=== PATIENT | male | born 1945 | race Caucasian/White ===

== ENCOUNTER 2018-01-21 19:58 | Emergency (ER) | payer OTHER ==
[~2018-01-21] VITALS: Ht 180.3 cm; Wt 72.6 kg
--- NOTE | ~2018-01-21 | EKG ---
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
[2018-01-21] MEDS ORDERED: UNKNOWN BP MED (20:26)
[2018-01-21] MEDS ORDERED: [UNRECOGNIZED DRUG - REMARK] (20:26)
[2018-01-21 20:59] LABS: ABSOLUTE NEUTROPHILS 5.9 thou/uL (1.4-8.2); BASOPHILS 0.7 % (0.0-2.0); EOSINOPHILS 1.3 % (0.0-3.0); LYMPHOCYTES 26.1 % (24.0-44.0); MCH 31.1 pg (26.0-34.0); MCHC 33.3 g/dL (28.0-37.0); MCV 93.4 fL (80.0-100.0); MONOCYTES 9.2 % (1.0-8.0); PLATELET COUNT 160 thou/uL (150-400); POLYS 62.7 % (36.0-66.0); RBC 5.13 mil/uL (4.50-6.00); RDW 17.7 % (10.5-14.5); WBC 9.4 thou/uL (4.0-11.0)
[2018-01-21 21:05] LABS: ANION GAP 8 mmol/L (7-16); BUN 24 mg/dL (7-18); CALCIUM 9.2 mg/dL (8.5-10.1); CHLORIDE 107 mmol/L (98-107); CO2 29 mmol/L (21-32); CREATININE 1.8 mg/dL (0.7-1.3); GLUCOSE 129 mg/dL (74-106); POTASSIUM 4.1 mmol/L (3.5-5.1); SODIUM 144 mmol/L (136-145)
[2018-01-21 21:07] LABS: URINE BILIRUBIN NEGATIVE (Negative); URINE BLOOD NEGATIVE (Negative); URINE CLARITY CLEAR; URINE COLOR YELLOW; URINE GLUCOSE-RANDOM* NEGATIVE (Negative); URINE KETONES NEGATIVE (Negative); URINE LEUKOCYTES-REFLEX NEGATIVE (Negative); URINE NITRITE-REFLEX NEGATIVE (Negative); URINE PROTEIN (DIPSTICK) NEGATIVE (Negative); URINE SPECIFIC GRAVITY 1.025 (1.005-1.035); URINE UROBILINOGEN 0.2 E.U./dl (0.2-1.0)
[2018-01-21 21:13] LABS: ALBUMIN 3.7 g/dL (3.4-5.0); DIRECT BILIRUBIN 0.1 mg/dL (<0.1-0.3); LIPASE 171 U/L (73-393); SGOT 21 U/L (15-37); SGPT 20 U/L (30-65); TOTAL BILIRUBIN 0.4 mg/dL (<0.1-1.0); TOTAL PROTEIN 7.7 g/dL (6.4-8.2); TROPONIN-I <0.06 ng/mL (<0.06)
[2018-01-21 22:47] VITALS: BP 186/95
== END 2018-01-21 22:48 | disposition home or self-care (01) ==
LOC: ER 19:58
PROVIDERS: Emergency Medicine
DX: R07.89 Other chest pain (principal); I10 Essential (primary) hypertension; F03.90 Unspecified dementia, unspecified severity, without behavioral disturbance, psychotic disturbance, mood disturbance, and anxiety; F17.210 Nicotine dependence, cigarettes, uncomplicated; Z95.1 Presence of aortocoronary bypass graft

== ENCOUNTER 2018-06-24 18:50 | Inpatient (IN) | payer OTHER ==
[~2018-06-24] VITALS: Ht 180.3 cm; Wt 75.5 kg
[~2018-06-24 18:50] MED LIST: UNKNOWN BP MED; [UNRECOGNIZED DRUG - REMARK]
[2018-06-24 18:53] VITALS: BP 130/90
[2018-06-24] MEDS ORDERED: ASPIR 8181 M1 PO (19:05)
[2018-06-24] MEDS ORDERED: TOPROL XL100 MG (19:05)
[2018-06-24 19:27] LABS: BASOPHILS 0.7 % (0.0-2.0); EOSINOPHILS 1.1 % (0.0-3.0); HEMATOCRIT 48.7 % (42.0-52.0); HEMOGLOBIN 16.4 gm/dL (14.0-18.0); LYMPHOCYTES 19.7 % (24.0-44.0); MCH 31.3 pg (26.0-34.0); MCHC 33.8 g/dL (28.0-37.0); MCV 92.8 fL (80.0-100.0); MONOCYTES 7.4 % (1.0-8.0); PLATELET COUNT 140 thou/uL (150-400); POLYS 71.1 % (36.0-66.0); RBC 5.24 mil/uL (4.50-6.00); RDW 17.1 % (10.5-14.5); WBC 8.4 thou/uL (4.0-11.0)
[2018-06-24 19:38] LABS: ANION GAP 11 mmol/L (7-16); BUN 23 mg/dL (7-18); CALCIUM 8.8 mg/dL (8.5-10.1); CHLORIDE 105 mmol/L (98-107); CO2 25 mmol/L (21-32); CREATININE 1.9 mg/dL (0.7-1.3); GLUCOSE 191 mg/dL (74-106); POTASSIUM 3.7 mmol/L (3.5-5.1); SODIUM 141 mmol/L (136-145)
[2018-06-24 19:44] LABS: ALBUMIN 3.4 g/dL (3.4-5.0); DIRECT BILIRUBIN 0.1 mg/dL (<0.1-0.3); SGOT 17 U/L (15-37); SGPT 17 U/L (30-65); TOTAL BILIRUBIN 0.7 mg/dL (<0.1-1.0); TOTAL PROTEIN 7.4 g/dL (6.4-8.2); TROPONIN-I <0.06 ng/mL (<0.06)
[2018-06-24 21:15] VITALS: BP 116/83
[2018-06-24 21:18] VITALS: BP 127/91
[2018-06-24 22:11] VITALS: BP 188/90
[2018-06-24 22:22] VITALS: BP 169/81
[2018-06-25 03:41] VITALS: BP 147/87
--- NOTE | 2018-06-25 05:50 | NUR ---
ASSUME CARE 2200. PT A/O TO PERSON. UNDERSTANDS COMMANDS BUT IS VERY NON COMPLIANT. PT THOUGHT HE IS IN A HOTEL IN [place] AND GOT VERY FRUSTRATED ON HEARING HE IS IN A HOSPITAL. PT DRESSED UP/PULLED IV AND LEADS OFF AND THRETENED TO LEAVE. CALLED SON (VAMSI MUNIZ) WHO TRIED TO CALM PT DOWN AND ENCOURAGED HIM TO STAY. MANAGER ENROLLMENT CALLED ON PT REFUSING TO HAVE ANOTHER IV PLACED/OR HAVE LEADS PUT BACK. SECURITY CALLED TO STAY ALERT BECAUSE PT IS IN [place]REET [place]. 0000: MANAGED TO CALM PT AND DISTRACT HIM WITH CUP OF COFFEE. ENCOURAGED HIM TO PUT LEADS BACK ON AND WEAR HOSPITAL GOWN. PT REFUSES TO SEND MEDS TO PHARMACY AD GOT AGITATED ON HEARING THAT. PT IS VERY POOR HISTORIAN. SR ON MONITOR AND ADEQUATE REST NOTED TONIGHT. SON TO COME IN THIS AM AND WILL CONVINVCE PT TO GET ANOTHER IV PLACED. WILL CONTINUE TO MONITOR AND FOLLOW WITH POC
[2018-06-25 06:34] LABS: CHOLESTEROL 208 mg/dL (<200); HDL CHOLESTEROL 75 mg/dL (>40); LDL CHOLESTEROL 112 mg/dL (<100); TC:HDL 2.8 Ratio (Not establshd); TRIGLYCERIDE 109 mg/dL (<150); VLDL 22 mg/dL (<40)
[2018-06-25 07:20] VITALS: BP 142/79
[2018-06-25 11:34] VITALS: BP 142/79
--- NOTE | 2018-06-25 13:35 | EKG ---
[address] [place] [address] ELECTROCARDIOGRAM REPORT Name: RAGHAVJESSIKA VAMSI Room #: 207-[facility] IN .R.#: [id number] ������������������ Admission: 06/24/18 ������������������ Attend Phys: Saleem Petty MD Discharge: 06/25/18 ������������������ Date of : 45 Report #: [id number] ����������������������������������������������������������������� [id number] THIS REPORT FOR: //name// [facility] ED Test Date: 2018-06-24 Test Time: 18:55:57 Pat Name: JESSIKA AVILEZ Department: Room: [facility] Gender: M 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 : 1945 Requested By: Szue Kothari Order Number: [id number] MD: Francisco Maynard Measurements Intervals [place] Rate: 93 P: 78 IN: 163 QRS: 32 QRSD: 90 T: 86 QT: 353 QTc: 440 Interpretive Statements Sinus rhythm Nonspecific ST segment abnormality Compared to ECG 01/21/2018 20:05:[address] segment abnormality is now present Electronically Signed On 06-25-2018 13:34:55 CDT by Francisco Maynard [email or web address] ��������������������������������������������� <ELECTRONICALLY SIGNED> ���������������������������������������� By: Francisco Maynard MD, [facility] ��������������������������������������������� 06/25/18 1334 1855 1855 Francisco Maynard MD, [facility] /EPI
[2018-06-25 13:57] VITALS: BP 142/79
--- NOTE | 2018-06-25 13:58 | NUR ---
PATIENT ALERT TO SELF ONLY, RE-ORIENTED TO TIME AND PLACE. SINUS RHYTHM ON JOB RECRUITER. ON ROOM AIR, TOLERATING HEART HEALTHY DIET. UP INDEPENDENT, STEADY. NO COMPLAINTS OF PAIN OR CHEST PAIN. NO SIGNS OF ACUTE DISTRESS NOTED AT THIS TIME. PATIENT GIVEN DISCHARGE INSTRUCTIONS, EXPLAINED TO SON, QUESTIONS ASKED. NO SIGNS OF ACUTE DISTRESS NOTED AT THIS TIME. PATIENT DISCHARGED WITH SON VIA CAR.
== END 2018-06-25 12:53 | disposition home or self-care (01) | DRG 313 ==
LOC: ER 18:50 → 2N 21:25 → ER 21:25 → TBA 21:40 → 2N 21:40
PROVIDERS: Emergency Medicine; Nurse Practitioner; ADMIT Hospitalist
DX: R07.89 Other chest pain (principal); E78.5 Hyperlipidemia, unspecified; F03.90 Unspecified dementia, unspecified severity, without behavioral disturbance, psychotic disturbance, mood disturbance, and anxiety; I10 Essential (primary) hypertension; F17.210 Nicotine dependence, cigarettes, uncomplicated; Z95.1 Presence of aortocoronary bypass graft; Z95.5 Presence of coronary angioplasty implant and graft
CPT/HCPCS: 10081

== ENCOUNTER 2020-05-09 23:20 | Emergency (ER) | payer OTHER ==
[~2020-05-09] VITALS: Ht 185.4 cm; Wt 102.1 kg
--- NOTE | ~2020-05-09 | EMS ---
[place] [id number] [facility] Patient Care Report Name: JESSIKA AVILEZ SR Room #: DEP [facility]#: [id number] Admission: 05/09/20 Attend Phys: Discharge: 05/10/20 Date of : 45 Report #: [id number] THIS REPORT FOR: //name// Report Transmitted: 05/12/2020 07:58 EMS Care Summary [place], [place]/[facility] Incident [id number] @ 05/09/2020 22:47 Incident Location [id number] [place] [address] Patient JESSIKA AVILEZ SR Male, 74 Years 1945 Patient Address [id number] [place], [place] [id number] Patient History Dementia,Hypertension (HTN),Hyperlipidemia,Cardiac Condition - Other, Patient Allergies No known allergies, Patient Medications Losartan, Amlodipine, Atorvastatin, Metoprolol, Chief Complaint SOB w/exertion Disposition Transported No Lights/[place] Dispatch Reason Breathing Problem Transported To [facility] Narrative Called for CP. Upon arrival, P45 on the scene, pt was CHAVARRIA x 3 sitting in a chair with a NRB in place. [place] [id number] EMS Patient Care Report Name: JESSIKA AVILEZ Room #: DEP [facility]#: [id number] Admission: 05/09/20 Attend Phys: Discharge: 05/10/20 Date of : 45 Report #: [id number] Initial Vitals @23:07P: 76, @23:08P: 76, @23:04P: 86,R: 16,BP: 187/70,Pain: 0/10,GCS: 14,Glucose: 102,CO: 2,SpO2: 100,Revised Trauma: 12,LA Suspected: false @23:03P: 73,Pain: 0/10,GCS: 14,CO: 5,LA Suspected: false @23:06 @23:01P: 76,R: 16,BP: 190/92,Pain: 0/10,GCS: 14,SpO2: 100,Revised Trauma: 12, Assessments @22:58MENTAL:Confused,Person Oriented,SKIN:HEENT:LUNG SOUNDS:ABDOMEN:PELVIS//GI:EXTREMITIES:Left Arm: No Abnormalities,Right Arm: No Abnormalities,Left Leg: No Abnormalities,Right Leg: No Abnormalities,PULSE:Radial: 2+ Normal,NEURO:No Abnormalities, Impression Acute Respiratory Distress (Dyspnea) Procedures @23:0612-Lead ECGResponse: UnchangedSucceeded@23:0812-Lead ECGResponse: UnchangedSucceeded@23:06Saline Lock 8cc (18 ga) Site: Antecubital-LeftResponse: UnchangedSucceeded@23:0712-Lead ECGResponse: UnchangedSucceeded@23:0312-Lead ECGResponse: UnchangedSucceeded@22:58ALS AssessmentResponse: UnchangedSucceeded@23:013-Lead ECGResponse: UnchangedSucceeded@23:00StretcherResponse: Unchanged@23:33Oxygen FlowRate: 15 Device: Non Re-breather Mask (NRB) Response: UnchangedSucceeded@23:34Oxygen FlowRate: 4 Device: Nasal Cannula (NC) Response: UnchangedSucceeded Timeline 22:46,Call Received 22:46,Dispatch Notified 22:47,Dispatched 22:49,En Route 22:56,On Scene 22:58,At Patient 22:58,ALS Assessment,Response: UnchangedSucceeded, 23:00,Stretcher,Response: Unchanged 23:01,BP: 190/92 M,PULSE: 76,RR: 16 R,SPO2: 100 Ox,ETCO2: ,BG: ,PAIN: 0,GCS: 14, 23:01,3-Lead ECG,Response: UnchangedSucceeded, 23:03,12-Lead ECG,Response: UnchangedSucceeded, 23:03,BP: / M,PULSE: 73,RR: R,SPO2: Ox,ETCO2: ,BG: ,PAIN: 0,GCS: 14, 23:04,BP: 187/70 M,PULSE: 86,RR: 16 R,SPO2: 100 Ox,ETCO2: ,B,PAIN: 0,GCS: 14, 23:06,Saline Lock 8cc 18 ga Site: Antecubital-Left,Response: UnchangedSucceeded, 23:06,12-Lead ECG,Response: UnchangedSucceeded, [facility] [address] [place] [address] EMS Patient Care Report Name: JESSIKA AVILEZ Room #: DEP [place]#: [id number] Admission: 05/09/20 Attend Phys: Discharge: 05/10/20 Date of : 45 Report #: [id number] 23:06,BP: / M,PULSE: ,RR: R,SPO2: Ox,ETCO2: ,BG: ,PAIN: ,GCS: , 23:07,12-Lead ECG,Response: UnchangedSucceeded, 23:07,BP: / M,PULSE: 76,RR: R,SPO2: Ox,ETCO2: ,BG: ,PAIN: ,GCS: , 23:08,12-Lead ECG,Response: UnchangedSucceeded, 23:08,BP: / M,PULSE: 76,RR: R,SPO2: Ox,ETCO2: ,BG: ,PAIN: ,GCS: , 23:08,Depart Scene 23:15,At Destination 23:33,Oxygen FlowRate: 15 Device: Non Re-breather Mask (NRB) Response: UnchangedSucceeded, 23:34,Oxygen FlowRate: 4 Device: Nasal Cannula (NC) Response: UnchangedSucceeded, 23:43,Call Closed Disclaimer v1.1 Copyright 2020 [employer] This EMS Care Summary contains data elements from the applicable legal record (which may be displayed differently). It is designed to provide pertinent information for the following purposes: continuity of care, clinical quality, and state data reporting. The complete legal record is available to ED staff and administrators of the receiving hospital in [employer]'s Patient Tracker. All data is provided "as is."
[~2020-05-09 23:20] MED LIST changes: +ASPIR 8181 M1 PO; +TOPROL XL100 MG
[2020-05-09 23:47] LABS: ABSOLUTE NEUTROPHILS 5.4 thou/uL (1.4-8.2); BASOPHILS 0.7 % (0.0-2.0); EOSINOPHILS 2.3 % (0.0-3.0); HEMATOCRIT 47.1 % (42.0-52.0); HEMOGLOBIN 15.7 gm/dL (14.0-18.0); LYMPHOCYTES 26.5 % (24.0-44.0); MCH 29.5 pg (26.0-34.0); MCHC 33.2 g/dL (28.0-37.0); MCV 88.6 fL (80.0-100.0); MONOCYTES 10.2 % (1.0-8.0); PLATELET COUNT 172 thou/uL (150-400); POLYS 60.3 % (36.0-66.0); RBC 5.32 mil/uL (4.50-6.00); RDW 16.8 % (10.5-14.5); WBC 8.9 thou/uL (4.0-11.0)
[2020-05-09 23:51] LABS: ANION GAP 10 mmol/L (7-16); BUN 19 mg/dL (7-18); CALCIUM 8.9 mg/dL (8.5-10.1); CHLORIDE 105 mmol/L (98-107); CO2 28 mmol/L (21-32); CREATININE 1.6 mg/dL (0.7-1.3); GLUCOSE 107 mg/dL (74-106); POTASSIUM 4.3 mmol/L (3.5-5.1); SODIUM 143 mmol/L (136-145)
[2020-05-09 23:59] LABS: TROPONIN-I <0.06 ng/mL (<0.06)
[2020-05-10 03:14] VITALS: BP 109/85
--- NOTE | 2020-05-10 11:23 | EKG ---
[place] [address] [facility] [place] [address] ELECTROCARDIOGRAM REPORT Name: JESSIKA AVILEZ Room #: [facility]#: [id number] Admission: 05/09/20 Attend Phys: Discharge: 05/10/20 Date of : 45 Report #: [id number] [facility] ED Test Date: 2020-05-09 Test Time: 23:26:19 Pat Name: JESSIKA AVILEZ Department: Room: Gender: Owner: [facility] : 1945 Requested By: Poncho Huffman Order Number: [id number] MD: Francisco Maynard Measurements Intervals [place] Rate: 76 P: 51 IA: 213 QRS: 24 QRSD: 94 T: 76 QT: 398 QTc: 448 Interpretive Statements Sinus rhythm Borderline prolonged IA interval Left atrial enlargement Compared to ECG 06/24/2018 18:55:57 No significant change was found Electronically Signed On 05-10-2020 11:23:08 ANATOMIC PATHOLOGIST by Francisco Maynard [email or web address] <ELECTRONICALLY SIGNED> By: Francisco Maynard MD, [facility] 05/10/20 1123 2326 2326 Francisco Maynard MD, FACC /EPI
--- NOTE | 2020-05-10 11:24 | EKG ---
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: [facility] : 1945 Requested By: Poncho Huffman Order Number: [id number] MD: Francisco Maynard Measurements Intervals [place] Rate: 76 P: 67 AR: 209 QRS: 31 QRSD: 118 T: 79 QT: 405 QTc: 456 Interpretive Statements Sinus rhythm LAE, consider biatrial enlargement Compared to ECG 05/09/2020 23:26:19 No significant change was found Electronically Signed On 05-10-2020 11:24:05 LIFE SKILLS CONSULTANT by Francisco Maynard [email or web address] <ELECTRONICALLY SIGNED> By: Francisco Maynard MD, [facility] 05/10/20 1124 0152 0152 Francisco Maynard MD, FACC /EPI
== END 2020-05-10 03:14 | disposition home or self-care (01) ==
LOC: ER 23:20
PROVIDERS: Emergency Medicine
DX: R07.89 Other chest pain (principal); I10 Essential (primary) hypertension; E78.5 Hyperlipidemia, unspecified; F17.210 Nicotine dependence, cigarettes, uncomplicated; Z79.82 Long term (current) use of aspirin; Z79.899 Other long term (current) drug therapy

== ENCOUNTER 2020-06-08 18:13 | Emergency (ER) | payer OTHER ==
[~2020-06-08] VITALS: Ht 170.2 cm; Wt 65.8 kg
--- NOTE | ~2020-06-08 | EMS ---
[facility] [address] [place] [address] EMS Patient Care Report Name: JESSIKA AVILEZ Room #: DEP M.R.#: [id number] Admission: 06/08/20 Attend Phys: Discharge: 06/08/20 Date of : 45 Report #: [id number] THIS REPORT FOR: //name// Report Transmitted: 06/08/2020 22:36 EMS Care Summary [place], [place]/[facility] Incident [id number] @ 06/08/2020 17:42 Incident Location [address] [place] [address] Patient JESSIKA AVILEZ Male, 74 Years 1945 Patient Address [address] [place] [address] Patient History Alzheimer's, Chief Complaint Got extra Covid shot Disposition Transported No Lights/[place] Dispatch Reason Sick Person Transported To [facility] Narrative Called for sick. Upon arrival, pt was being brought to the EMS cot and was taken to the ambulance w/o incident. Pt reportedly was given a 3rd Covid shot yesterday when his family took him to the clinic. He received original shots back in Feb. Pt now feels weak and malaise, however pt has Alzheimer's/Dementia that is pretty significant and it is hard to read him. Vitals and D-stick. En route: vitals repeated. RR to ER. Arrived: pt taken to ER #8 and moved to their bed w/o incident. Pt care & report to ER staff. Initial Vitals [facility] [address] [place] [address] EMS Patient Care Report Name: JESSIKA AVILEZ [facility] [id number] Admission: 06/08/20 Attend Phys: Discharge: 06/08/20 Date of : 45 Report #: [id number] @18:01P: 83,R: 14,BP: 156/94,Pain: 0/10,GCS: 14,Glucose: 100,CO: 11,SpO2: 97,Revised Trauma: 12, @18:00P: 85,R: 14,BP: 156/90,Pain: 0/10,GCS: 15,CO: 14,SpO2: 96,Revised Trauma: 12, Assessments @17:52MENTAL:Confused,Person Oriented,SKIN:HEENT:LUNG SOUNDS:ABDOMEN:PELVIS//GI:EXTREMITIES:Left Arm: No Abnormalities,Right Arm: No Abnormalities,Left Leg: No Abnormalities,Right Leg: No Abnormalities,PULSE:Radial: 2+ Normal,NEURO:No Abnormalities, Impression Generalized Weakness Procedures @17:52ALS AssessmentResponse: UnchangedSucceeded@17:56StretcherResponse: Unchanged Timeline 17:40,Call Received 17:40,Dispatch Notified 17:42,Dispatched 17:42,En Route 17:50,On Scene 17:52,At Patient 17:52,ALS Assessment,Response: UnchangedSucceeded, 17:56,Stretcher,Response: Unchanged 18:00,BP: 156/90 M,PULSE: 85,RR: 14 R,SPO2: 96 Ox,ETCO2: ,BG: ,PAIN: 0,GCS: 15, 18:01,BP: 156/94 M,PULSE: 83,RR: 14 R,SPO2: 97 Ox,ETCO2: ,B,PAIN: 0,GCS: 14, 18:03,Depart Scene 18:10,At Destination 18:31,Call Closed Disclaimer v1.1 Copyright 2020 [employer] This EMS Care Summary contains data elements from the applicable legal record (which may be displayed differently). It is designed to provide pertinent information for the following purposes: continuity of care, clinical quality, and state data reporting. The complete legal record is available to ED staff and administrators of the receiving hospital in [employer]'s Patient Tracker. All data is provided "as is."
--- NOTE | ~2020-06-08 | EMS ---
[facility] [address] [place] [address] EMS Patient Care Report Name: JESSIKA AVILEZ Room #: DEP M.R.#: [id number] Admission: 06/08/20 Attend Phys: Discharge: 06/08/20 Date of : 45 Report #: [id number] THIS REPORT FOR: //name// Report Transmitted: 06/08/2020 21:36 EMS Care Summary [place], [place]/[facility] Incident [id number] @ 06/08/2020 17:42 Incident Location [address] [place] [address] Patient JESSIKA AVILEZ Male, 74 Years 1945 Patient Address [address] [place] [address] Patient History Alzheimer's, Chief Complaint Got extra Covid shot Disposition Transported No Lights/[place] Dispatch Reason Sick Person Transported To [facility] Narrative Called for sick. Upon arrival, pt was being brought to the EMS cot and was taken to the ambulance w/o incident. Pt reportedly was given a 3rd Covid shot yesterday when his family took him to the clinic. He received original shots back in Feb. Pt now feels weak and malaise, however pt has Alzheimer's/Dementia that is pretty significant and it is hard to read him. Vitals and D-stick. En route: vitals repeated. RR to ER. Arrived: pt taken to ER #8 and moved to their bed w/o incident. Pt care & report to ER staff. Initial Vitals [facility] [address] [place] [address] EMS Patient Care Report Name: JESSIKA AVILEZ Room #: [facility] [id number] Admission: 06/08/20 Attend Phys: Discharge: 06/08/20 Date of : 45 Report #: [id number] @18:01P: 83,R: 14,BP: 156/94,Pain: 0/10,GCS: 14,Glucose: 100,CO: 11,SpO2: 97,Revised Trauma: 12, @18:00P: 85,R: 14,BP: 156/90,Pain: 0/10,GCS: 15,CO: 14,SpO2: 96,Revised Trauma: 12, Assessments @17:52MENTAL:Confused,Person Oriented,SKIN:HEENT:LUNG SOUNDS:ABDOMEN:PELVIS//GI:EXTREMITIES:Left Arm: No Abnormalities,Right Arm: No Abnormalities,Left Leg: No Abnormalities,Right Leg: No Abnormalities,PULSE:Radial: 2+ Normal,NEURO:No Abnormalities, Impression Generalized Weakness Procedures @17:52ALS AssessmentResponse: UnchangedSucceeded@17:56StretcherResponse: Unchanged Timeline 17:40,Call Received 17:40,Dispatch Notified 17:42,Dispatched 17:42,En Route 17:50,On Scene 17:52,At Patient 17:52,ALS Assessment,Response: UnchangedSucceeded, 17:56,Stretcher,Response: Unchanged 18:00,BP: 156/90 M,PULSE: 85,RR: 14 R,SPO2: 96 Ox,ETCO2: ,BG: ,PAIN: 0,GCS: 15, 18:01,BP: 156/94 M,PULSE: 83,RR: 14 R,SPO2: 97 Ox,ETCO2: ,B,PAIN: 0,GCS: 14, 18:03,Depart Scene 18:10,At Destination 18:31,Call Closed Disclaimer v1.1 Copyright 2020 [employer] This EMS Care Summary contains data elements from the applicable legal record (which may be displayed differently). It is designed to provide pertinent information for the following purposes: continuity of care, clinical quality, and state data reporting. The complete legal record is available to ED staff and administrators of the receiving hospital in [employer]'s Patient Tracker. All data is provided "as is."
[2020-06-08 19:01] LABS: ABSOLUTE NEUTROPHILS 5.9 thou/uL (1.4-8.2); BASOPHILS 0.6 % (0.0-2.0); HEMATOCRIT 46.5 % (42.0-52.0); HEMOGLOBIN 15.2 gm/dL (14.0-18.0); LYMPHOCYTES 15.5 % (24.0-44.0); MCH 29.7 pg (26.0-34.0); MCHC 32.7 g/dL (28.0-37.0); MCV 90.7 fL (80.0-100.0); MONOCYTES 10.4 % (1.0-8.0); PLATELET COUNT 160 thou/uL (150-400); POLYS 71.5 % (36.0-66.0); RBC 5.13 mil/uL (4.50-6.00); WBC 8.2 thou/uL (4.0-11.0)
[2020-06-08 19:05] LABS: ANION GAP 6 mmol/L (7-16); BUN 19 mg/dL (7-18); CALCIUM 8.9 mg/dL (8.5-10.1); CHLORIDE 109 mmol/L (98-107); CO2 29 mmol/L (21-32); CREATININE 1.7 mg/dL (0.7-1.3); GLUCOSE 107 mg/dL (74-106); POTASSIUM 4.5 mmol/L (3.5-5.1); SODIUM 144 mmol/L (136-145)
[2020-06-08 19:15] LABS: ALBUMIN 3.7 g/dL (3.4-5.0); SGOT 14 U/L (15-37); SGPT 18 U/L (16-63); TOTAL BILIRUBIN 0.4 mg/dL (0.2-1.0); TOTAL PROTEIN 7.8 g/dL (6.4-8.2); TROPONIN-I <0.06 ng/mL (<0.06)
[2020-06-08 20:05] LABS: URINE BILIRUBIN NEGATIVE (Negative); URINE BLOOD NEGATIVE (Negative); URINE CLARITY CLEAR; URINE COLOR YELLOW; URINE GLUCOSE-RANDOM* NEGATIVE (Negative); URINE KETONES NEGATIVE (Negative); URINE LEUKOCYTES-REFLEX NEGATIVE (Negative); URINE NITRITE-REFLEX NEGATIVE (Negative); URINE PROTEIN (DIPSTICK) NEGATIVE (Negative); URINE UROBILINOGEN 0.2 E.U./dl (0.2-1.0)
[2020-06-08 20:40] VITALS: BP 156/82
--- NOTE | 2020-06-09 07:11 | EKG ---
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 : 1945 Requested By: Wong Hilton Order Number: [id number] MD: Jose Sunshine Measurements Intervals [place] Rate: 88 P: 74 NC: 189 QRS: 17 QRSD: 86 T: 90 QT: 371 QTc: 449 Interpretive Statements Sinus rhythm Left atrial enlargement Nonspecific T abnormalities, lateral leads Compared to ECG 05/10/2020 01:52:46 T-wave abnormality now present ST (T wave) deviation now present Electronically Signed On 06-09-2020 7:11:07 CDT by Jose Sunshine [email or web address] <ELECTRONICALLY SIGNED> By: Jose Sunshine MD, [facility] 06/09/20710 31 31 Jose Sunshine MD, FACC /EPI
== END 2020-06-08 21:55 ==
LOC: ER 18:13
PROVIDERS: Emergency Medicine
DX: N18.9 Chronic kidney disease, unspecified (principal); T50.B95A Adverse effect of other viral vaccines, initial encounter; I12.9 Hypertensive chronic kidney disease with stage 1 through stage 4 chronic kidney disease, or unspecified chronic kidney disease; E78.5 Hyperlipidemia, unspecified; F17.210 Nicotine dependence, cigarettes, uncomplicated; Z79.82 Long term (current) use of aspirin; Z79.899 Other long term (current) drug therapy; Y92.89 Other specified places as the place of occurrence of the external cause